=== PATIENT | female | born 2000 | race Caucasian/White ===

== ENCOUNTER 2022-12-20 22:34 | Emergency (ER) | payer BC, OTHER ==
[~2022-12-20] VITALS: Ht 154.9 cm; Wt 5.4 kg
[2022-12-20] MEDS ORDERED: HYDROCODONE/APAP 10-325 MG TABLET PO ONE (23:00)
[2022-12-20] MEDS ORDERED: ONDANSETRON ODT 4 MG TAB.RAPDIS SL ONE (23:00)
[2022-12-20] MEDS ORDERED: ONDANSETRON ODT 4 MG TAB.RAPDIS ONE (23:06)
[2022-12-20] MEDS ORDERED: HYDROCODONE/APAP 10-325 MG TABLET ONE (23:07)
[2022-12-20] MEDS ORDERED: HYDR-4209 PO (23:32)
[2022-12-20 23:54] VITALS: BP 107/68; TEMP 98.5; O2SAT 99
== END 2022-12-20 23:54 | disposition home or self-care (01) ==
LOC: ER 22:40
DX: S97.81XA Crushing injury of right foot, initial encounter (principal); W23.0XXA Caught, crushed, jammed, or pinched between moving objects, initial encounter; Y93.89 Activity, other specified; Y92.89 Other specified places as the place of occurrence of the external cause; Y99.8 Other external cause status
CPT/HCPCS: 73630; A4663; Q0162